=== PATIENT | female | born 1970 | race Caucasian/White ===

== ENCOUNTER 2023-06-12 10:39 | Outpatient (AMB) | payer OTHER, SELFPAY ==
--- NOTE | 2023-06-12 10:42 | AM.OFFWIN_ITS ---
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 Has taken Tylenol with little to no relief. Patient denies any trauma, ruling ankle. Denies numbness, tingling, fevers, chills, chest pain, shortness of breath, lower extremity swelling. Physical exam significant for No lower extremity edema.? No calf ttp. 5/5 strength to bilateral upper and lower extremities. + tenderness to palpation to left plantar fascia region. 2+ dorsalis pedis, anterior tibialis, posterior tibialis pulses equal bilateral. No foot drop. Normal sensation distally. No overlying skin changes. Capillary refill intact to bilateral lower extremities History and physical exam consistent with plantar fasciitis. Unlikely sprain, strain, fracture, dislocation, neurovascular compromise, threat to [place]. No signs of arterial or venous occlusion. Plan prednisone, naproxen, advised her to free the water bottle, and massage the bottom of her foot in the morning for 10-15 minutes. Will give her orthopedic follow-up. Educated patient on diagnosis and treatment plan, answered all question, patient verbalizes understanding. At this time patient will be discharged home, advised to return with new or worsening symptoms. Educated on worrisome signs and symptoms and when to return. At this time I feel comfortable discharge home. Review of Systems Const Details: Constitutional : No Weight loss, No Fever, No Chills, No Fatigue, No Malaise ENT/Mouth : No sore throat, No Rhinorrhea Eyes: No Eye Pain, No Swelling, No Redness Cardiovascular : No Chest Pain, No SOB, No Dyspnea on Exertion, No Orthopnea, No Edema, No Palpitations Respiratory : No Cough, No Sputum, No Wheezing Gastrointestinal : No Nausea, No Vomiting, No Diarrhea, No Constipation, No abdominal Pain, No Hematochezia, No Melena Genitourinary : No Dysuria, No Urinary Frequency, No Hematuria, Musculoskeletal : No joint pain, No Myalgias, No Joint Swelling, + foot pain Skin : No Skin Lesions, No rash Neuro : No Weakness, No Numbness, No Dizziness, No Headache Psych : No Anxiety/Panic, No Depression All other systems reviewed and are negative All systems reviewed & are unremarkable except as noted in HPI and below Physical Exam Vital Signs: Vital signs stable Appearance: Alert.? Oriented X3.? No acute distress.? Head: Normocephalic, atraumatic, no step-offs or deformities Eyes: Pupils equal, round and reactive to light.? CVS: Normal heart rate and rhythm.? Pulses normal.? Respiratory: No respiratory distress.? Breath sounds normal.? Skin: Skin warm and dry.? Normal skin color.? Normal skin turgor.? Extremities: No lower extremity edema.? No calf ttp. 5/5 strength to bilateral upper and lower extremities. + tenderness to palpation to left plantar fascia region. 2+ dorsalis pedis, anterior tibialis, posterior tibialis pulses equal bilateral. No foot drop. Normal sensation distally. No overlying skin changes. Capillary refill intact to bilateral lower extremities Back: No midline tenderness, no C-spine tenderness, full range of motion, no CVA tenderness bilaterally Neuro: Oriented X 3.? No motor deficit.? No sensory deficit. CN 2-12 intact . Ambulating with steady gait normal coordination Assessment & Plan Assessment & Plan (1) Plantar fasciitis of left foot: Code(s): M72.2 - Plantar fascial fibromatosis Plan Take your medications as prescribed. If you were prescribed antibiotics today, it is important that you take your medication to their entirety, do not skip any doses, do not finish them early. Follow-up with your primary care provider this week. Return to the emergency department with new or worsening symptoms. Such as fevers, chills, chest pain, shortness of breath, nausea, vomiting, dizziness, headache, vision changes, lethargy In case of emergency call 911 Please use the water bottle as instructed on the bottom of your foot Orders: Referrals Orthopedics Referral M72.2 - Plantar fascial fibromatosis Medications: New prednisone 40 mg (2 x 20 mg) PO DAILY 10 tabs 0RF 5 days naproxen 500 mg PO BID PRN 14 tabs 0RF pain Coding Level of Care Code Est Pt Level 3 (71196) Diagnoses Plantar fasciitis of left foot M72.2
[2023-06-12 10:55] VITALS: BP 138/86; PULSE 68; TEMP 36.7; O2SAT 97
== END 2023-06-12 11:05 | disposition home or self-care (01) ==
PROVIDERS: Visit Provider Physician Assistant
DX: M72.2 Plantar fascial fibromatosis (principal)
CPT/HCPCS: 99051; 99213